=== PATIENT | male | born 1970 | race Caucasian/White ===

== ENCOUNTER 2021-06-26 17:31 | Emergency (ER) | payer MEDICARE, BC, OTHER ==
--- NOTE | 2021-06-26 18:39 | ED ---
General Adult HPI - General Chief complaint: Wound/Laceration Stated complaint: Fall Time Seen by Provider: 06/26/21 17:58 Source: EMS Mode of arrival: EMS Limitations: language barrier, altered mental status, physical limitation - History of Present Illness Initial comments: Patient is a 48-year-old male with past medical history of Rachel's, jeffry ia, and Parkinson's presenting for evaluation post fall. Patient has altered mental status language barrier. Patient had an unwitnessed fall at [facility] and now presents with a laceration of the forehead. Patient attests he tried to get out of bed when he slipped and fell hitting his head. Patient is not on any blood thinners according to records provided at bedside. Patient denies chest pain, shortness of breath, abdominal pain, vision changes, palpitations, hearing changes, fever, chills, nausea, vomiting, diarrhea, constipation, dizziness, loss of consciousness. - Related Data Home Medications Medication Instructions Recorded Confirmed Acetaminophen Suppository [Tylenol 650 mg RECTAL Q6H PRN 06/26/21 06/26/21 Suppository] Acetaminophen Tab [Tylenol] 650 mg PO Q4H PRN 06/26/21 06/26/21 FLUoxetine HCL [PROzac] 10 mg PO DAILY 06/26/21 06/26/21 FLUoxetine HCL [PROzac] 20 mg PO DAILY 06/26/21 06/26/21 Haloperidol Oral Soln [Haldol Oral 2 mg PO TID@0800,1300,2000 06/26/21 06/26/21 Soln] Hyoscyamine Sulfate [Levsin] 0.125 mg PO Q4H PRN 06/26/21 06/26/21 LORazepam [Ativan] 1 mg PO Q6H 06/26/21 06/26/21 MORPHINE ORAL ZULLY CONC 20mg/mL 5 mg PO Q4H PRN 06/26/21 06/26/21 [Roxanol Oral Soln Conc 20MG/ML] risperiDONE [RisperDAL] 2 mg PO BID 06/26/21 06/26/21 Allergies Allergy/AdvReac Type Severity Reaction Status Date / Time No Known Allergies Allergy Unverified 06/26/21 18:18 Review of Systems ROS Statement: Those systems with pertinent positive or pertinent negative responses have been documented in the HPI. ROS Other: All systems not noted in ROS Statement are negative. Past Medical History Past Medical History: Coronary Artery Disease (CAD), Memory Impairment, Neurologic Disorder, Pneumonia Additional Past Medical History / Comment(s): Rachel's, Dementia, Parkinson's, Anemia, tachycardia, Past Surgical History: Unable to Obtain Past Psychological History: Anxiety, Depression Smoking Status: Former smoker Past Alcohol Use History: None Reported Past Drug Use History: None Reported General Exam Limitations: language barrier, altered mental status, physical limitation General appearance: alert, in no apparent distress Head exam: Present: other (Outside of laceration, no obvious malformation or deformity) Expanded Head exam: Present: laceration (5 cm laceration above the left eyebrow). Absent: raccoon eyes, tee's sign, general tenderness Eye exam: Present: normal appearance, PERRL, EOMI. Absent: scleral icterus, conjunctival injection, periorbital swelling Neck exam: Present: normal inspection Respiratory exam: Present: rales. Absent: respiratory distress, wheezes, rhonchi, stridor, chest wall tenderness, accessory muscle use Cardiovascular Exam: Present: normal rhythm, tachycardia, normal heart sounds Neurological exam: Present: alert, altered Skin exam: Present: warm, dry, intact, normal color. Absent: rash Course Vital Signs 06/26/21 06/26/21 17:32 22:24 Temperature 98.8 F 98.5 F Pulse Rate 120 H 79 Respiratory 16 18 Rate Blood Pressure 115/60 129/79 O2 Sat by Pulse 97 97 Oximetry EKG Findings - EKG Results: EKG: interpreted by ERMD, WNL, sinus rhythm Procedures - Laceration Laceration #1 Consent Obtained: verbal consent Indication: laceration Site: face Size (cm): 5 Description: irregular (For about 4 cm and then splits into a flap ) Depth: simple, single layer Anesthetic Used: lidocaine 1%, without epi Anesthesia Technique: local infiltration Amount (mls): 5 Pre-repair: wound explored, irrigated extensively Type of Sutures: nylon Size of Sutures: 6-0 Technique: simple, interrupted Patient Tolerated Procedure: well Medical Decision Making - Medical Decision Making She is a 51-year-old male with past medical history of Rachel's, dementia, Parkinson's presenting for evaluation after an unwitnessed fall. Patient has history of mental status, physical limitations, language limitations. He states that he tried to get out of bed when he fell and hit his face. He now has a laceration of the forehead. He denies headache, vision changes, numbness, tingling, chest pain, shortness of breath, abdominal pain, nausea, vomiting, dizziness. He is tachycardic at 120 BPM. EKG is within normal limits. Troponin is not elevated. CT without contrast head and cervical spine shows no acute intracranial process or acute abnormality of the cervical spine. Lab work is remarkable for white count of 11.9 and hemoglobin of 10.9. Patient states he has been asymptomatic throughout this encounter. Labs discussed with Dr. Madrid who advised no further work up. Centimeter laceration above the left eyebrow was closed using 6-0 nylon suture, 7 sutures placed after wound was anesthetized with 1% lidocaine without epi and irrigated. Sutures removed in 3- 5 days. It can be done by your primary care, and urgent care, or ER. Watch for signs of infection, including but not limited to increased swelling, pain, redness, discharge. Return to ER if any worsening symptoms or new onset alarming symptoms, including but not limited to syncope, seizure, chest pain, shortness of breath, vision or auditory changes, fever, chills, nausea, vomiting. Answered all questions. Patient was discharged and transported back to [facility] by EMS. - Lab Data Result diagrams: 06/26/21 Unknown 06/26/21 Unknown Lab Results 06/26/21 06/26/21 06/26/21 Range/Units Unknown Unknown Unknown WBC 11.9 H (3.8-10.6) k/uL RBC 3.72 L (4.30-5.90) m/uL Hgb 10.9 L (13.0-17.5) gm/dL Hct 32.9 L (39.0-53.0) % MCV 88.3 (80.0-100.0) fL MCH 29.3 (25.0-35.0) pg MCHC 33.2 (31.0-37.0) g/dL RDW 14.1 (11.5-15.5) % Plt Count 345 (150-450) k/uL MPV 7.1 Neutrophils % 75 % Lymphocytes % 10 % Monocytes % 12 % Eosinophils % 1 % Basophils % 1 % Neutrophils # 9.0 H (1.3-7.7) k/uL Lymphocytes # 1.2 (1.0-4.8) k/uL Monocytes # 1.4 H (0-1.0) k/uL Eosinophils # 0.1 (0-0.7) k/uL Basophils # 0.1 (0-0.2) k/uL Sodium 135 L (137-145) mmol/L Potassium 4.8 (3.5-5.1) mmol/L Chloride 99 (98-107) mmol/L Carbon Dioxide 28 (22-30) mmol/L Anion Gap 8 mmol/L BUN 19 (9-20) mg/dL Creatinine 0.66 (0.66-1.25) mg/dL Est GFR (CKD-EPI)AfAm >90 (>60 ml/min/1.73 sqM) Est GFR (CKD-EPI)NonAf >90 (>60 ml/min/1.73 sqM) Glucose 116 H (74-99) mg/dL Calcium 8.6 (8.4-10.2) mg/dL Magnesium 2.1 (1.6-2.3) mg/dL Total Bilirubin 0.6 (0.2-1.3) mg/dL AST 27 (17-59) U/L ALT 12 (4-49) U/L Alkaline Phosphatase 71 (38-126) U/L Troponin I <0.012 (0.000-0.034) ng/mL Total Protein 7.7 (6.3-8.2) g/dL Albumin 3.7 (3.5-5.0) g/dL - EKG Data EKG shows normal: sinus rhythm, axis Rate: normal When compared to previous EKG there are: previous EKG unavailable - Radiology Data Radiology results: report reviewed No acute intracranial process or acute abnormalities of the cervical spine Disposition Clinical Impression: Laceration, Head injury Disposition: HOME SELF-CARE Condition: Good Instructions (If sedation given, give patient instructions): Care For Your Stitches (DC), Laceration (DC), Head Injury (ED), Head Injury (DC) Additional Instructions: Stitches may be removed in 3-5 days. This can be done by your primary care, urgent care, or ER. Keep wound clean and watch for signs of infection. This includes increased redness, swelling, discharge, warmth, pain. Return to ER with worsening symptoms or new onset alarming symptoms, including but not limited chest pain, shortness of breath, headache, vision changes, nausea, vomiting, fever, chills, dizziness, syncope, seizure. Follow-up with primary care in 1-2 days. Is patient prescribed a controlled substance at d/c from ED?: No Referrals: Nonstaff,Physician [Primary Care Provider] - 1-2 days Time of Disposition: 21:44
[2021-06-26 19:29] LABS: ALT 12 U/L (4-49); AST 27 U/L (17-59); African American GFR (CKD) >90 (>60 ml/min/1.73 sqM); Albumin 3.7 g/dL (3.5-5.0); Alkaline Phosphatase 71 U/L (38-126); Anion Gap 8 mmol/L; Blood Urea Nitrogen 19 mg/dL (9-20); Calcium 8.6 mg/dL (8.4-10.2); Carbon Dioxide 28 mmol/L (22-30); Chloride 99 mmol/L (98-107); Glucose 116 mg/dL (74-99); Magnesium 2.1 mg/dL (1.6-2.3); Non-African American GFR(CKD) >90 (>60 ml/min/1.73 sqM); Potassium 4.8 mmol/L (3.5-5.1); Sodium 135 mmol/L (137-145); Total Bilirubin 0.6 mg/dL (0.2-1.3); Total Protein 7.7 g/dL (6.3-8.2)
[2021-06-26 19:32] LABS: Basophils # (A) 0.1 k/uL (0-0.2); Basophils % (A) 1 %; Eosinophils # (A) 0.1 k/uL (0-0.7); Eosinophils % (A) 1 %; HCT 32.9 % (39.0-53.0); HGB 10.9 gm/dL (13.0-17.5); Lymphocytes # (A) 1.2 k/uL (1.0-4.8); Lymphocytes % (A) 10 %; MCH 29.3 pg (25.0-35.0); MCHC 33.2 g/dL (31.0-37.0); MCV 88.3 fL (80.0-100.0); Mean Platelet Volume 7.1; Monocytes # (A) 1.4 k/uL (0-1.0); Monocytes % (A) 12 %; Neutrophils % (A) 75 %; Platelet Count 345 k/uL (150-450); RBC 3.72 m/uL (4.30-5.90); RDW 14.1 % (11.5-15.5); WBC 11.9 k/uL (3.8-10.6)
--- NOTE | 2021-06-26 19:59 | CT ---
EXAMINATION TYPE: CT brain [place] [facility] con DATE OF EXAM: 06/26/2021 COMPARISON: None available HISTORY: Unwitnessed fall with head injury CT DLP: 1404.4 mGycm Automated exposure control for dose reduction was used. TECHNIQUE: CT scan of the head and cervical spine are performed without contrast. FINDINGS: There is no acute intracranial hemorrhage, mass effect, or midline shift identified. Ther e is mild parenchymal volume loss and white matter disease. The ventricles and sulci are within jerrell l limits in size. The globes are intact. The visualized sinuses demonstrate mild mucosal thickening of the left sphenoid and maxillary sinuses, otherwise clear. Prior ORIF of the bilateral maxillary si nuses noted. Cervical spine is visualized in its entirety from C1 through upper thoracic levels and demonstrates s atisfactory alignment without evidence of acute fracture or dislocation. There is mild cervical spond ylosis. Prevertebral soft tissue appears within normal limits. The C1-C2 articulation is unremarkab le. IMPRESSION: No acute intracranial or cervical spine abnormality. Chronic findings as above.
[2021-06-26] MEDS ORDERED: LIDOCAINE 1% INJ 10MG/ML (20 ML MDV) SQ ONE (20:12)
[2021-06-26 22:25] VITALS: BP 129/79; PULSE 79; RESP 18; TEMP 98.5
== END 2021-06-26 22:25 | disposition home or self-care (01) ==
LOC: EEVIPCON 17:31 → EC 17:31
DX: S01.81XA Laceration without foreign body of other part of head, initial encounter (principal); I25.10 Atherosclerotic heart disease of native coronary artery without angina pectoris; F32.A Depression, unspecified; F41.9 Anxiety disorder, unspecified; G20 Parkinson's disease; F02.80 Dementia in other diseases classified elsewhere, unspecified severity, without behavioral disturbance, psychotic disturbance, mood disturbance, and anxiety; Z79.899 Other long term (current) drug therapy; W01.0XXA Fall on same level from slipping, tripping and stumbling without subsequent striking against object, initial encounter
CPT/HCPCS: 36415; 93005; 80053; 83735; 84484; 85025; 72125; 70450; 99285; 12013; J2001